=== PATIENT | female | born 1960 | race Two or more races ===

== ENCOUNTER 2021-03-17 13:45 | Inpatient (IN) | payer OTHER ==
[~2021-03-17] VITALS: Ht 162.6 cm; Wt 104.8 kg
[2021-03-17] MEDS ORDERED: LASIX20 MG PO (14:55)
[2021-03-17] MEDS ORDERED: IRON325 MG PO (14:55)
[2021-03-17] MEDS ORDERED: ACID REDUCER20 M1 PO (14:55)
[2021-03-17] MEDS ORDERED: REGLAN5 MG/5 ML PO (14:56)
== END 2021-03-26 10:15 | disposition home or self-care (01) | DRG 737 ==
LOC: OB/GYN 03-22 07:00 → O/R 03-22 07:35 → OB/GYN 03-22 13:45
PROVIDERS: ADMIT Specialist; ATTEND Specialist
PROC: 0UT20ZZ Resection of Bilateral Ovaries, Open Approach (ICD-10-PCS; 2021-03-22)
PROC: 0UT70ZZ Resection of Bilateral Fallopian Tubes, Open Approach (ICD-10-PCS; 2021-03-22)
PROC: 0DBU0ZZ Excision of Omentum, Open Approach (ICD-10-PCS; 2021-03-22)
PROC: 07BC0ZZ Excision of Pelvis Lymphatic, Open Approach (ICD-10-PCS; 2021-03-22)
PROC: 07BD0ZZ Excision of Aortic Lymphatic, Open Approach (ICD-10-PCS; 2021-03-22)
PROC: 0UT90ZL Resection of Uterus, Supracervical, Open Approach (ICD-10-PCS; principal; 2021-03-22 07:00)
DX: C56.3 Malignant neoplasm of bilateral ovaries (principal); C78.6 Secondary malignant neoplasm of retroperitoneum and peritoneum; D36.0 Benign neoplasm of lymph nodes; D25.1 Intramural leiomyoma of uterus; D25.2 Subserosal leiomyoma of uterus; N85.8 Other specified noninflammatory disorders of uterus

== ENCOUNTER 2024-03-27 11:09 | Emergency (ER) | payer OTHER ==
[~2024-03-27] VITALS: Ht 162.6 cm; Wt 75.3 kg
[~2024-03-27 11:09] MED LIST: ACID REDUCER20 M1 PO; IRON325 MG PO; LASIX20 MG PO; REGLAN5 MG/5 ML PO
[2024-03-27] MEDS ORDERED: ELIQUIS5 MG PO (11:30)
[2024-03-27 12:31] LABS: MEAN CORPUSCULAR HGB CONC 34.7 g/dl (32.0-36.0); RED BLOOD COUNT 2.55 M/uL (4.00-6.00)
[2024-03-27 12:43] LABS: MEAN CORPUSCULAR HEMOGLOBIN 27.8 pg (27.00-32.0)
[2024-03-27 12:44] LABS: HEMATOCRIT 20.4 % (36.0-45.00); PLATELET COUNT 65 K/uL (150-450); RED CELL DISTRIBUTION WIDTH 20.7 % (11.5-14.5)
[2024-03-27 12:45] LABS: HEMOGLOBIN 7.1 g/dL (12.0-15.00)
[2024-03-27 12:58] LABS: INR 1.42
[2024-03-27 13:15] LABS: PROTHROMBIN TIME 15.1 SECONDS (9.0-11.5)
[2024-03-27] MEDS ORDERED: LIDOCAINE HCL 1%/EPINEPHRINE 20ML VIAL IJ ONE (13:25)
== END 2024-03-27 15:47 | disposition home or self-care (01) ==
LOC: ER 11:09
PROVIDERS: Emergency Medicine
DX: S09.8XXA Other specified injuries of head, initial encounter (principal); W19.XXXA Unspecified fall, initial encounter; Y93.89 Activity, other specified; Y92.89 Other specified places as the place of occurrence of the external cause; Y99.8 Other external cause status; Z91.040 Latex allergy status

== ENCOUNTER 2024-04-08 18:29 | Inpatient (IN) | payer OTHER ==
[~2024-04-08] VITALS: Ht 162.6 cm; Wt 72.6 kg
[~2024-04-08 18:29] MED LIST changes: +ELIQUIS5 MG PO
[2024-04-08] MEDS ORDERED: REGLAN5 MG/5 ML PO (18:32)
[2024-04-08] MEDS ORDERED: ACID REDUCER20 M1 PO (18:32)
--- NOTE | 2024-04-08 18:37 | NUR ---
PTE ALERTA Y ORIENTADA X3 REFIERE VENIR CON RESULTADO DE LABORATORIO DE HOY CON VALERES DE HEMOGLOBINA EN (6.3). PTE EXPRESA QUE PADECE DE CANCER DE OVARIOS. SE MIDNE S/V Y SE UBICA.
[2024-04-08] MEDS ORDERED: 0.9 % SODIUM CHLORIDE 1,000 ML IV STA (19:38)
[2024-04-08 20:04] LABS: ERYTHROCYTE SEDIMENTATION RATE 31 mm/hr
--- NOTE | 2024-04-08 20:15 | NUR ---
SE ORIENTA PTE SOBRE TX A SEGUIR, LA MISMA REFIERE ENTENDER. SE CHARMAINE MUESTRA DE LAB, SE CANALIZA Y SE COLOCA IV FLUIDS
[2024-04-08 20:21] LABS: HEMATOCRIT 20.2 % (36.0-45.00); MEAN CELL VOLUME 87.4 fL (80.00-100.00); MEAN CORPUSCULAR HEMOGLOBIN 29.4 pg (27.00-32.0); MEAN CORPUSCULAR HGB CONC 33.6 g/dl (32.0-36.0); PLATELET COUNT 97 K/uL (150-450); RED BLOOD COUNT 2.31 M/uL (4.00-6.00); RED CELL DISTRIBUTION WIDTH 20.2 % (11.5-14.5)
[2024-04-08 20:23] LABS: HEMOGLOBIN 6.8 g/dL (12.0-15.00)
[2024-04-08 20:26] LABS: INR 1.3; PROTHROMBIN TIME 13.9 SECONDS (9.0-11.5)
[2024-04-08 20:37] LABS: ALBUMIN 2.4 gm/dL (3.4-5.0); BILIRUBIN TOTAL 0.6 mg/dL (0.3-1.2); BILIRUBIN,CONJUGATED 0.22 mg/dL (0.0-0.2); BILIRUBIN,UNCONJUGATED 0.38 mg/dL (0.0-0.6); CALCIUM 6.8 mg/dL (8.5-10.1); CREATININE SERUM 2.3 mg/dL (0.55-1.02); GFR 21.35; GLOBULINA 3.8 G/DL (2.4-3.5); POTASSIUM 5.65 mEq/L (3.5-5.1); TOTAL PROTEIN 6.2 gm/dL (6.4-8.2)
[2024-04-08] MEDS ORDERED: SODIUM POLYSTYRENE SULFONATE 15 G/4 TSP TSP PO SCH (22:40)
[2024-04-08] MEDS ORDERED: GABAPENTIN 300 MG CAPSULE PO SCH (22:41)
[2024-04-08] MEDS ORDERED: FUROsemide 20 MG/2 ML VIAL IV SCH ×2 (22:45→22:48)
[2024-04-09 06:35] VITALS: BP 105/65
[2024-04-09 06:59] LABS: PH,URINE 5.5 (5.0-8.0); URINE BILIRRUBIN Negative (NEGATIVE); URINE BLOOD NHT; URINE COLOR Yellow; URINE GLUCOSE Negative (NEGATIVE); URINE KETONE Negative (NEGATIVE); URINE LEUKOCYTE Large; URINE NITRATE Negative; URINE PROTEIN 30 (NEGATIVE); URINE UROBILINOGEN 0.2 E.U./dl
[2024-04-09 07:00] LABS: URINE CAST 3.68 uL (0.0-1.40); URINE EPITHELIAL CELLS 7.9 uL (0.0-38.8); URINE RBC 6.1 uL (0.0-20.8); URINE WBC 2642.6 uL (0.0-23.2)
[2024-04-09 07:32] LABS: URINE APPEARANCE SL CLOUDY; URINE BACTERIA > 9821.5 uL (0.0-1933)
[2024-04-09] MEDS ORDERED: FUROsemide 20 MG/2 ML VIAL IV SCH (09:00)
[2024-04-09] MEDS ORDERED: PANTOPRAZOLE SODIUM 40 MG/VIAL VIAL IV SCH (09:00)
[2024-04-09] MEDS ORDERED: APIXABAN 5 MG TABLET PO SCH (09:00)
[2024-04-09 09:29] VITALS: BP 86/51; O2SAT 100
[2024-04-09] MEDS ORDERED: CEFTRIAXONE SODIUM 2,000 MG in DEXTROSE 5 % IN WATER 100 ML IV NR (10:45)
[2024-04-09 17:42] VITALS: BP 100/55
[2024-04-10 02:41] VITALS: BP 94/50
[2024-04-10] MEDS ORDERED: CEFTRIAXONE SODIUM 2,000 MG in DEXTROSE 5 % IN WATER 100 ML IV SCH (09:00)
[2024-04-10] MEDS ORDERED: CEFTRIAXONE SODIUM 2,000 MG in 0.9 % SODIUM CHLORIDE 100 ML IV SCH (09:00)
[2024-04-10 09:44] VITALS: BP 84/52; O2SAT 99
[2024-04-10 15:33] LABS: HEMATOCRIT 27.3 % (36.0-45.00); MEAN CELL VOLUME 86.2 fL (80.00-100.00); MEAN CORPUSCULAR HGB CONC 34.2 g/dl (32.0-36.0); RED BLOOD COUNT 3.17 M/uL (4.00-6.00); RED CELL DISTRIBUTION WIDTH 17.7 % (11.5-14.5)
[2024-04-10 15:34] LABS: HEMOGLOBIN 9.4 g/dL (12.0-15.00); MEAN CORPUSCULAR HEMOGLOBIN 29.6 pg (27.00-32.0); PLATELET COUNT 78 K/uL (150-450)
[2024-04-10 15:45] LABS: CREATININE SERUM 2.2 mg/dL (0.55-1.02); GFR 22.47; POTASSIUM 3.79 mEq/L (3.5-5.1)
[2024-04-10 16:05] LABS: CALCIUM 6.1 mg/dL (8.5-10.1)
[2024-04-10 17:13] VITALS: BP 99/59
[2024-04-10] MEDS ORDERED: ALBUMIN HUMAN 100 ML VIAL IV SCH (21:00)
[2024-04-11] VITALS (9 sets, daily range): BP systolic 86–105; BP diastolic 49–53; O2SAT 97–100
[2024-04-11 12:44] LABS: HEMATOCRIT 31.9 % (36.0-45.00); HEMOGLOBIN 10.8 g/dL (12.0-15.00); MEAN CELL VOLUME 87.9 fL (80.00-100.00); MEAN CORPUSCULAR HEMOGLOBIN 29.6 pg (27.00-32.0); MEAN CORPUSCULAR HGB CONC 33.7 g/dl (32.0-36.0); RED BLOOD COUNT 3.63 M/uL (4.00-6.00); RED CELL DISTRIBUTION WIDTH 18.2 % (11.5-14.5)
[2024-04-11 12:45] LABS: PLATELET COUNT 62 K/uL (150-450)
[2024-04-11 12:54] LABS: CREATININE SERUM 2.2 mg/dL (0.55-1.02); GFR 22.47
[2024-04-11 13:19] LABS: POTASSIUM 2.67 mEq/L (3.5-5.1)
[2024-04-11 13:20] LABS: CALCIUM 5.8 mg/dL (8.5-10.1)
[2024-04-11] MEDS ORDERED: POTASSIUM CHLORIDE IN WATER 100 ML IV NR (15:00)
[2024-04-11] MEDS ORDERED: CALCITRIOL 0.25 MCG CAPSULE PO SCH (22:03)
[2024-04-11] MEDS ORDERED: CALCIUM GLUCONATE 100 MG/ML VIAL ONE (22:06)
[2024-04-11] MEDS ORDERED: POTASSIUM CHLORIDE IN WATER 40 MEQ/100 ML PIGGYBAG IV ONE (22:15)
[2024-04-11] MEDS ORDERED: CALCIUM GLUCONATE 100 MG/ML VIAL IV ONE ×2 (22:15→22:45)
[2024-04-11] MEDS ORDERED: MAGNESIUM SULFATE 50% 1,000 MG/2 ML VIAL IV ONE (22:15)
[2024-04-11] MEDS ORDERED: CALCIUM GLUCONATE IV SCH (22:19)
[2024-04-12] VITALS (10 sets, daily range): BP systolic 84–86; BP diastolic 43–51; O2SAT 96–100
[2024-04-12] MEDS ORDERED: CALCIUM GLUCONATE 100 MG/ML VIAL IV ONE
[2024-04-12] MEDS ORDERED: MAGNESIUM SULFATE 50% 1,000 MG/2 ML VIAL IV ONE (01:00)
[2024-04-12] MEDS ORDERED: POTASSIUM CHLORIDE IN WATER 40 MEQ/100 ML PIGGYBAG IV ONE (04:00)
[2024-04-12 05:41] LABS: ALBUMIN 2.6 gm/dL (3.4-5.0); BILIRUBIN TOTAL 0.87 mg/dL (0.3-1.2); CALCIUM 6.6 mg/dL (8.5-10.1); CREATININE SERUM 2.09 mg/dL (0.55-1.02); GFR 23.84; GLOBULINA 2.5 G/DL (2.4-3.5); TOTAL PROTEIN 5.1 gm/dL (6.4-8.2)
[2024-04-12 06:02] LABS: POTASSIUM 2.08 mEq/L (3.5-5.1)
[2024-04-13] VITALS (8 sets, daily range): BP systolic 77–95; BP diastolic 47–53; O2SAT 97–100
[2024-04-13 07:36] LABS: ALBUMIN 2.4 gm/dL (3.4-5.0); BILIRUBIN TOTAL 0.65 mg/dL (0.3-1.2); CREATININE SERUM 1.83 mg/dL (0.55-1.02); GFR 27.79; GLOBULINA 2.5 G/DL (2.4-3.5); TOTAL PROTEIN 4.9 gm/dL (6.4-8.2)
[2024-04-13 08:26] LABS: MAGNESIUM 1.2 mg/dL (1.8-2.4); POTASSIUM 2.47 mEq/L (3.5-5.1)
[2024-04-13] MEDS ORDERED: MAGNESIUM SULFATE IN WATER 50 ML IV NR (09:00)
[2024-04-13] MEDS ORDERED: CEFTRIAXONE SODIUM 2,000 MG VIAL ONE (09:08)
[2024-04-13] MEDS ORDERED: SPIRONOLACTONE 50 MG TABLET PO NR (12:00)
[2024-04-13] MEDS ORDERED: CALCIUM GLUCONATE 100 MG/ML VIAL IV NR (12:00)
[2024-04-13 13:38] LABS: CREATININE SERUM 1.8 mg/dL (0.55-1.02); GFR 28.33
[2024-04-13 13:59] LABS: CALCIUM 6.2 mg/dL (8.5-10.1); POTASSIUM 2.86 mEq/L (3.5-5.1)
[2024-04-13] MEDS ORDERED: POTASSIUM CHLORIDE/D5-0.9%NACL 40 MEQ/1,000 ML PIGGYBAG IV STA (15:13)
[2024-04-14 00:58] VITALS: BP 100/55
[2024-04-14 01:16] VITALS: O2SAT 100
[2024-04-14 06:23] VITALS: O2SAT 98
[2024-04-14] MEDS ORDERED: CEFTRIAXONE SODIUM 2,000 MG VIAL ONE (08:55)
[2024-04-14] MEDS ORDERED: CALCITRIOL 0.5 MCG CAPSULE PO SCH (09:00)
[2024-04-14] MEDS ORDERED: SPIRONOLACTONE 50 MG TABLET PO SCH (09:00)
[2024-04-14] MEDS ORDERED: CALCITRIOL 0.25 MCG CAPSULE PO SCH (09:00)
[2024-04-14 09:07] VITALS: BP 89/54; O2SAT 99
[2024-04-14 10:17] VITALS: O2SAT 100
[2024-04-14 11:40] LABS: CALCIUM 6.8 mg/dL (8.5-10.1); CREATININE SERUM 1.6 mg/dL (0.55-1.02); GFR 32.45
[2024-04-14 11:53] LABS: POTASSIUM 2.89 mEq/L (3.5-5.1)
[2024-04-14] MEDS ORDERED: POTASSIUM CHLORIDE 10 MEQ CAPSULE PO STA (11:58)
== END 2024-04-14 13:43 | disposition home or self-care (01) | DRG 690 ==
LOC: ER 18:32 → MEDJ 22:47
PROVIDERS: General Practice; Internal Medicine; Student in an Organized Health Care Education/Training Program; ADMIT Internal Medicine; ATTEND Internal Medicine
PROC: BW21ZZZ Computerized Tomography (CT Scan) of Abdomen and Pelvis (ICD-10-PCS; principal; 2024-04-08)
PROC: 4A12X4Z Monitoring of Cardiac Electrical Activity, External Approach (ICD-10-PCS; 2024-04-09)
PROC: 30233N1 Transfusion of Nonautologous Red Blood Cells into Peripheral Vein, Percutaneous Approach (ICD-10-PCS; 2024-04-09)
PROC: 0W9G3ZZ Drainage of Peritoneal Cavity, Percutaneous Approach (ICD-10-PCS; 2024-04-10)
DX: N39.0 Urinary tract infection, site not specified (principal); N17.8 Other acute kidney failure; C56.9 Malignant neoplasm of unspecified ovary; R18.8 Other ascites; B96.1 Klebsiella pneumoniae [K. pneumoniae] as the cause of diseases classified elsewhere; D63.0 Anemia in neoplastic disease; K74.60 Unspecified cirrhosis of liver; D69.6 Thrombocytopenia, unspecified; E87.5 Hyperkalemia

== ENCOUNTER 2024-05-15 13:44 | Inpatient (IN) | payer OTHER ==
[~2024-05-15] VITALS: Ht 162.6 cm; Wt 72.6 kg
[2024-05-15] MEDS ORDERED: CALCIUM500 M1 PO (13:49)
[2024-05-15] MEDS ORDERED: FOLIC ACID20 MG PO (13:50)
--- NOTE | 2024-05-15 13:53 | NUR ---
SE RECIBE PTE ALERTA Y ORIENTADA X3. PTE REFIERE EN MUESTRAS DE LABORATORIO REALIZADA EL MOSES DE HOY HEMOGLOBINA EN 5.70. SE MIDEN S/V Y SE UBICA.
[2024-05-15] MEDS ORDERED: RINGERS SOLUTION,LACTATED 1,000 ML IV STA (14:24)
[2024-05-15] MEDS ORDERED: DIPHENHYDRAMINE HCL 50 MG in DEXTROSE 5 % IN WATER 50 ML IV STA (14:27)
--- NOTE | 2024-05-15 14:47 | NUR ---
SE EDUCA A PACIENET SOBRE INDICACIONES MEDICAS, VERBALIZA ENTENDER Y ACEPTAR. SE COLECTAN MUESTRAS DE RAJNI PARA LABORATORIOS, MEDIANTE A VENOPUNCON Y SE OBTIENE ACCESO VENOSO.
[2024-05-15 15:04] LABS: MEAN CELL VOLUME 94.9 fL (80.00-100.00); PLATELET COUNT 218 K/uL (150-450); RED BLOOD COUNT 1.98 M/uL (4.00-6.00); RED CELL DISTRIBUTION WIDTH 21.1 % (11.5-14.5)
[2024-05-15 15:18] LABS: HEMATOCRIT 18.8 % (36.0-45.00); HEMOGLOBIN 6.4 g/dL (12.0-15.00); MEAN CORPUSCULAR HEMOGLOBIN 32.3 pg (27.00-32.0)
[2024-05-15 15:32] LABS: ALBUMIN 2.2 gm/dL (3.4-5.0); BILIRUBIN TOTAL 0.37 mg/dL (0.3-1.2); BILIRUBIN,CONJUGATED 0.19 mg/dL (0.0-0.2); BILIRUBIN,UNCONJUGATED 0.18 mg/dL (0.0-0.6); CALCIUM 7.6 mg/dL (8.5-10.1); CREATININE SERUM 2.17 mg/dL (0.55-1.02); GFR 22.83; POTASSIUM 4.84 mEq/L (3.5-5.1); TOTAL PROTEIN 5.7 gm/dL (6.4-8.2)
--- NOTE | 2024-05-15 15:44 | NUR ---
1500 SE RECIBE PTE DEL TURNO ANTERIOR ALERTA Y ORIENTADA X3, PENDIENTE A REQUISAR #4 UNIDADES COMPLETAS PRBC'S. SE REALIZA SEGUNDA VERFIICACION DE NOMBRE CORRECTO Y FECHA DE NACIMIENTO CORRECTA CON PACIENTE. SE LEVA REQUISION A LABORATORIO Y SE ENTREGA A [place] QUIEN REFIERE TODO ESTA EN ORDEN CON REQUISION. SE COLOCA COPIA DE REQUISION, ORDEN Y CONSENTIMIENTO FIRMANDO DE PTE EN EXPEDIENTE CLINICO. [address] GUILLORY PACIENTE (DR.PEDRO RIVERA) QUIEN DA AUTORIZACION PARA UTILIZAR [facility]. SE AVISA FRANCISCO DE PATRICKO, [place].
[2024-05-15] MEDS ORDERED: DIPHENHYDRAMINE HCL 50 MG/ML VIAL 1ML ONE (15:55)
[2024-05-15] MEDS ORDERED: HEPARIN SODIUM,PORCINE 5,000 UNITS/ML VIAL ONE (15:56)
[2024-05-15] MEDS ORDERED: 0.9 % SODIUM CHLORIDE 1,000 ML IV SCH (18:00)
[2024-05-15] MEDS ORDERED: DIPHENHYDRAMINE HCL 50 MG in DEXTROSE 5 % IN WATER 50 ML IV PRN (18:00)
[2024-05-15 20:18] VITALS: BP 82/50; O2SAT 100
[2024-05-15] MEDS ORDERED: PANTOPRAZOLE SODIUM 40 MG/VIAL VIAL IV SCH (21:00)
[2024-05-15 21:11] VITALS: BP 91/56
[2024-05-16 02:13] LABS: PH,URINE 5.5 (5.0-8.0); URINE APPEARANCE Cloudy; URINE BILIRRUBIN Negative (NEGATIVE); URINE BLOOD Negative; URINE COLOR Yellow; URINE GLUCOSE Negative (NEGATIVE); URINE KETONE Negative (NEGATIVE); URINE LEUKOCYTE Small; URINE NITRATE Negative; URINE PROTEIN Trace (NEGATIVE); URINE UROBILINOGEN 0.2 E.U./dl
[2024-05-16 02:28] VITALS: BP 88/60; O2SAT 100
[2024-05-16 02:48] LABS: URINE CAST 2.06 uL (0.0-1.40); URINE RBC 15.3 uL (0.0-20.8); URINE WBC 179.8 uL (0.0-23.2)
[2024-05-16 02:58] LABS: URINE BACTERIA > 9821.5 uL (0.0-1933)
[2024-05-16 08:50] VITALS: BP 88/59; O2SAT 98
[2024-05-16] MEDS ORDERED: FOLIC ACID 1 MG TABLET PO SCH (09:00)
[2024-05-16] MEDS ORDERED: IRON FUM,PS/FOLIC/BCOMP,C NO.9 1 CAP CAPSULE PO SCH (09:00)
[2024-05-16 19:20] VITALS: BP 115/75
[2024-05-17 02:00] VITALS: BP 85/56; O2SAT 100
[2024-05-17 08:51] VITALS: BP 94/62; O2SAT 100
[2024-05-17 10:44] LABS: HEMATOCRIT 29.2 % (36.0-45.00); MEAN CELL VOLUME 91.4 fL (80.00-100.00); MEAN CORPUSCULAR HGB CONC 34.5 g/dl (32.0-36.0); RED BLOOD COUNT 3.19 M/uL (4.00-6.00); RED CELL DISTRIBUTION WIDTH 17.3 % (11.5-14.5)
[2024-05-17 12:17] LABS: MEAN CORPUSCULAR HEMOGLOBIN 31.3 pg (27.00-32.0)
[2024-05-17 12:19] LABS: PLATELET COUNT 118 K/uL (150-450)
[2024-05-17 18:28] VITALS: BP 113/67
== END 2024-05-17 21:27 | disposition left against medical advice (07) | DRG 812 ==
LOC: ER 13:47 → MEDJ 18:22
PROVIDERS: General Practice; ADMIT Internal Medicine; ATTEND Internal Medicine
PROC: 8E0ZXY6 Isolation (ICD-10-PCS; principal; 2024-05-16)
PROC: 30233N1 Transfusion of Nonautologous Red Blood Cells into Peripheral Vein, Percutaneous Approach (ICD-10-PCS; 2024-05-16)
DX: D64.9 Anemia, unspecified (principal); N17.9 Acute kidney failure, unspecified; C56.9 Malignant neoplasm of unspecified ovary; N18.9 Chronic kidney disease, unspecified; K74.69 Other cirrhosis of liver; D63.0 Anemia in neoplastic disease

== ENCOUNTER 2024-06-15 11:22 | Inpatient (IN) | payer OTHER ==
[~2024-06-15] VITALS: Ht 160 cm; Wt 81.6 kg
[~2024-06-15 11:22] MED LIST changes: +CALCIUM500 M1 PO; +FOLIC ACID20 MG PO
[2024-06-15] MEDS ORDERED: 0.9 % SODIUM CHLORIDE 1,000 ML IV SCH ×2 (11:45→17:45)
[2024-06-15 13:26] LABS: MEAN CORPUSCULAR HGB CONC 36.2 g/dl (32.0-36.0); RED BLOOD COUNT 1.76 M/uL (4.00-6.00); RED CELL DISTRIBUTION WIDTH 20.2 % (11.5-14.5)
--- NOTE | 2024-06-15 13:35 | NUR ---
SE EDUCA A PACIENTE POR JOSE RAUL MARINELLIO SOBRE ORDENES MEIDCAS, REALIZA VENOPUNCION PARA COLECTAR MUESTRAS DE LAB Y ADIMINISTRACION DE MEDICAMENTOS
[2024-06-15 13:43] LABS: INR 1.76; PARTIAL THROMBOPLASTIN TIME 33.8 SECONDS (22.0-34.0)
[2024-06-15 13:45] LABS: PROTHROMBIN TIME 18.4 SECONDS (9.0-11.5)
[2024-06-15 14:14] LABS: MEAN CORPUSCULAR HEMOGLOBIN 32.3 pg (27.00-32.0)
[2024-06-15 14:15] LABS: ALBUMIN 1.8 gm/dL (3.4-5.0); BILIRUBIN TOTAL 2.49 mg/dL (0.3-1.2); CALCIUM 6.6 mg/dL (8.5-10.1); GFR 15.71; GLOBULINA 2.8 G/DL (2.4-3.5); HEMATOCRIT 15.7 % (36.0-45.00); POTASSIUM 4.21 mEq/L (3.5-5.1); TOTAL PROTEIN 4.6 gm/dL (6.4-8.2)
[2024-06-15 14:21] LABS: HEMOGLOBIN 5.7 g/dL (12.0-15.00); PLATELET COUNT 3 K/uL (150-450)
[2024-06-15 14:37] LABS: COVID-19 AG NEGATIVE (NEGATIVE)
[2024-06-15 14:39] LABS: INFLUENZA A AG NEGATIVE (NEGATIVE)
--- NOTE | 2024-06-15 16:42 | NUR ---
PACIENTE Y FAMILIAR REALIZAN LLAMADA A FRANCES MEDICO ONCOLOGO, EULOGIO SURESH, QUIEN AUTORIZA EL USO DEL [facility]. SE CONSULTA TAMBIEN CON DR. HENRY QUIEN REFIERE QUE DE NO ARIELA OTRA ALTERNATIVA SE UTILICE. PACIENTE AL MOMENTO REHUSA OTRAS ALTERNATIVAS. MR. MILLER AYAN VIA PATENTE A TRAVES DEL [facility].
[2024-06-15] MEDS ORDERED: PANTOPRAZOLE SODIUM 40 MG/VIAL VIAL IV SCH (17:20)
[2024-06-15] MEDS ORDERED: 0.9 % SODIUM CHLORIDE 1,000 ML IV ONE (17:30)
[2024-06-15] MEDS ORDERED: FILGRASTIM-AAFI 300 MCG/0.5 ML SYRINGE SUBCUTANEO SCH ×2 (17:38→18:00)
[2024-06-15] MEDS ORDERED: ONDANSETRON HCL 4 MG in 0.9 % SODIUM CHLORIDE 50 ML IV PRN (17:45)
[2024-06-15] MEDS ORDERED: ACETAMINOPHEN 500 MG GEL..CAP PO PRN (17:45)
[2024-06-15] MEDS ORDERED: PIPERACILLIN/TAZOBACTAM SODIUM 2.25 GM in DEXTROSE 5 % IN WATER 50 ML IV SCH (18:00)
[2024-06-15 18:50] LABS: URINE APPEARANCE Cloudy; URINE BILIRRUBIN Small (NEGATIVE); URINE BLOOD Negative; URINE COLOR Dark Yellow; URINE GLUCOSE Negative (NEGATIVE); URINE KETONE Negative (NEGATIVE); URINE LEUKOCYTE Trace; URINE NITRATE Negative; URINE PROTEIN 30 (NEGATIVE)
[2024-06-15 18:53] LABS: URINE BACTERIA 63.6 uL (0.0-1933); URINE EPITHELIAL CELLS 14.4 uL (0.0-38.8); URINE RBC 18.2 uL (0.0-20.8); URINE WBC 6.4 uL (0.0-23.2)
[2024-06-15 19:04] LABS: D DIMER 2.72 MG/L
[2024-06-15 19:10] LABS: ALBUMIN 1.6 gm/dL (3.4-5.0); BILIRUBIN TOTAL 2.4 mg/dL (0.3-1.2); BILIRUBIN,CONJUGATED 1.42 mg/dL (0.0-0.2); BILIRUBIN,UNCONJUGATED 0.98 mg/dL (0.0-0.6); TOTAL PROTEIN 4.8 gm/dL (6.4-8.2)
[2024-06-16] MEDS ORDERED: NOREPINEPHRINE BITARTRATE 1 MG/ML AMPUL IV ONE (08:27)
[2024-06-16] MEDS ORDERED: AMIODARONE HCL 50 MG/ML AMPUL IV ONE (09:00)
[2024-06-16] MEDS ORDERED: GABAPENTIN 300 MG CAPSULE PO SCH (09:00)
[2024-06-16] MEDS ORDERED: IRON FUM,PS/FOLIC/BCOMP,C NO.9 1 CAP CAPSULE PO SCH (09:00)
[2024-06-16] MEDS ORDERED: CALCITRIOL 0.5 MCG CAPSULE PO SCH (09:00)
[2024-06-17] VITALS (12 sets, daily range): BP systolic 40–108; BP diastolic 30–65; O2SAT 90–100
[2024-06-17] MEDS ORDERED: NOREPINEPHRINE BITARTRATE 1 MG/ML AMPUL IV ONE (08:36)
[2024-06-17] MEDS ORDERED: MEROPENEM 500 MG/VIAL VIAL IV SCH (11:19)
[2024-06-17] MEDS ORDERED: AMIODARONE HCL 900 MG in DEXTROSE 5 % IN WATER 500 ML IV SCH (11:30)
[2024-06-17] MEDS ORDERED: NOREPINEPHRINE BITARTRATE 8 MG in DEXTROSE 5 % IN WATER 250 ML IV SCH (12:00)
[2024-06-17] MEDS ORDERED: VANCOMYCIN HCL 125 MG/7.5 ML BLIST.PACK PO SCH (12:00)
[2024-06-17] MEDS ORDERED: VANCOMYCIN HCL 125 MG CAPSULE PO SCH (12:00)
[2024-06-17] MEDS ORDERED: SODIUM CL 0.9% 50 ML IV.SOLN IV ONE (16:28)
[2024-06-18] VITALS (10 sets, daily range): BP systolic 56–122; BP diastolic 38–90; O2SAT 0–99
[2024-06-18 06:32] LABS: HEMATOCRIT 39.7 % (36.0-45.00); HEMOGLOBIN 13.8 g/dL (12.0-15.00); MEAN CELL VOLUME 86.6 fL (80.00-100.00); MEAN CORPUSCULAR HGB CONC 34.6 g/dl (32.0-36.0); RED BLOOD COUNT 4.59 M/uL (4.00-6.00); RED CELL DISTRIBUTION WIDTH 17.2 % (11.5-14.5)
[2024-06-18 07:58] LABS: PLATELET COUNT 7 K/uL (150-450)
[2024-06-18] MEDS ORDERED: MORPHINE SULFATE 4 MG/ML VIAL IV SCH (17:45)
== END 2024-06-18 22:24 | disposition expired | DRG 871 ==
LOC: ER 11:22 → ICU-2 19:10 → MEDJ 19:10
PROVIDERS: Emergency Medicine; General Practice; ADMIT Internal Medicine; ATTEND Internal Medicine
PROC: 30233N1 Transfusion of Nonautologous Red Blood Cells into Peripheral Vein, Percutaneous Approach (ICD-10-PCS; 2024-06-15)
PROC: 4A12X4Z Monitoring of Cardiac Electrical Activity, External Approach (ICD-10-PCS; principal; 2024-06-17)
DX: A41.9 Sepsis, unspecified organism (principal); R65.21 Severe sepsis with septic shock; N17.9 Acute kidney failure, unspecified; D61.818 Other pancytopenia; N39.0 Urinary tract infection, site not specified; R18.8 Other ascites; C56.9 Malignant neoplasm of unspecified ovary; C78.7 Secondary malignant neoplasm of liver and intrahepatic bile duct; C78.00 Secondary malignant neoplasm of unspecified lung; R57.1 Hypovolemic shock; E86.0 Dehydration; D69.6 Thrombocytopenia, unspecified; K74.60 Unspecified cirrhosis of liver; D63.0 Anemia in neoplastic disease; Z86.718 Personal history of other venous thrombosis and embolism